=== PATIENT | male | born 1965 | race African-American/Black ===

== ENCOUNTER 2017-04-07 03:42 | Emergency (ER) | payer SELFPAY | END 2017-04-07 04:13 | disposition home or self-care (01) | LOC: ER 03:42 | DX: K70.31 Alcoholic cirrhosis of liver with ascites (principal); F10.20 Alcohol dependence, uncomplicated; Z86.19 Personal history of other infectious and parasitic diseases; Z87.891 Personal history of nicotine dependence | CPT/HCPCS: 99283 ==

== ENCOUNTER 2017-04-28 08:43 | Inpatient (IN) | payer SELFPAY ==
[2017-04-28] MEDS: THIAMINE 100 MG TABLET. PO ×2 (10:57)
[2017-04-28] MEDS: FOLIC/VIT B COMP W-C (RENAL) TABLET. PO ×2 (10:57)
[2017-04-28] MEDS: LACTOBACILLUS RHAMNOSUS GG 1 CAPSULE. PO ×4 (10:58→20:48)
[2017-04-28] MEDS: cefTRIAXone IV Push 1 GM VIAL. IVP ×2 (10:58)
[2017-04-28] MEDS: VITAMIN B12,B9,B6 COMPLEX 1 TABLET. PO ×2 (10:58)
[2017-04-28] MEDS: DOXYCYCLINE HYCLATE 100 MG TABLET PO ×4 (10:59→20:48)
[2017-04-28 11:43] LABS: INFLUENZA A PATIENT NEGATIVE (NEGATIVE); INFLUENZA B PATIENT POSITIVE (NEGATIVE); OBC FLU VALID
[2017-04-28] MEDS: IPRATRPIUM/ALBUTEROL 0.5/2.5MG 3 ML NEBU. NEB ×6 (11:51→19:53)
[2017-04-28 12:44] LABS: INR 1.8 (0.8-1.1); PROTHROMBIN TIME PATIENT 19.6 SEC (11.7-14.0)
[2017-04-28 12:48] LABS: HEMATOCRIT 38.7 % (39.0-53.0); HEMOGLOBIN 12.9 g/dL (13.0-17.5); MEAN CORPUSCULAR HEMOGLOBIN 33 pg (25-35); MEAN CORPUSCULAR HGB CONC 34 g/dL (31-37); MEAN CORPUSCULAR VOLUME 98 fL (79-100); PLATELET COUNT 69 x10^3/uL (140-400); RED BLOOD COUNT 3.95 x10^6/uL (4.30-5.70); RED CELL DISTRIBUTION WIDTH 15.3 % (11.5-14.5); WHITE BLOOD COUNT 7.5 x10^3/uL (4.0-11.0)
[2017-04-28] MEDS: OSELTAMIVIR 75 MG CAPSULE PO ×4 (13:05→20:48)
[2017-04-28] MEDS: oxyCODONE/APAP 5/325 1 TAB TABLET PO ×4 (14:50→19:45)
[2017-04-28] MEDS ORDERED: LIDOCAINE WITH 8.4% SOD BICARB 3 ML DISP.SYRIN. ×2 (15:04)
[2017-04-28] MEDS: LIDOCAINE WITH 8.4% SOD BICARB 3 ML DISP.SYRIN. INJ ×2 (16:05)
[2017-04-28] MEDS: ENOXAPARIN 40 MG/0.4 ML SYRINGE. SQ ×2 (16:55)
[2017-04-28] MEDS: MULTIVITAMIN with MINERAL TABLET. PO ×2 (17:23)
[2017-04-29 04:58] LABS: ADD MAN DIFF? NO
[2017-04-29 05:00] LABS: BASO # 0.1 x10^3/uL (0.0-0.2); BASO % 1 % (0-3); EOS # 0.2 x10^3/uL (0.0-0.7); EOS % 2 % (0-3); HEMATOCRIT 32.9 % (39.0-53.0); HEMOGLOBIN 11.3 g/dL (13.0-17.5); LYMPH # 1.1 x10^3/uL (1.0-4.8); LYMPH % 11 % (24-48); MEAN CORPUSCULAR HEMOGLOBIN 34 pg (25-35); MEAN CORPUSCULAR HGB CONC 34 g/dL (31-37); MEAN CORPUSCULAR VOLUME 99 fL (79-100); MONO # 1.6 x10^3/uL (0.0-1.1); MONO % 16 % (0-9); NEUT # 7.2 x10^3uL (1.8-7.7); NEUT % 71 % (31-73); PLATELET COUNT 55 x10^3/uL (140-400); RED BLOOD COUNT 3.32 x10^6/uL (4.30-5.70); RED CELL DISTRIBUTION WIDTH 15.2 % (11.5-14.5); WHITE BLOOD COUNT 10.1 x10^3/uL (4.0-11.0)
[2017-04-29 05:10] LABS: INR 2.1 (0.8-1.1); PROTHROMBIN TIME PATIENT 21.9 SEC (11.7-14.0)
[2017-04-29 05:21] LABS: ALBUMIN 1.5 g/dL (3.4-5.0); ALBUMIN/GLOBULIN RATIO 0.4 (1.0-1.7); ALK PHOS 116 U/L (46-116); ALT (SGPT) 24 U/L (16-63); ANION GAP 3 (6-14); AST (SGOT) 66 U/L (15-37); BLOOD UREA NITROGEN 8 mg/dL (8-26); BUN/CREATININE RATIO 8 (6-20); CALCIUM 7.7 mg/dL (8.5-10.1); CARBON DIOXIDE 30 mmol/L (21-32); CHLORIDE 108 mmol/L (98-107); GFR 94.6; GLUCOSE 114 mg/dL (70-99); POTASSIUM 4.5 mmol/L (3.5-5.1); SODIUM 141 mmol/L (136-145); TOTAL BILIRUBIN 1.2 mg/dL (0.2-1.0); TOTAL PROTEIN 5.2 g/dL (6.4-8.2)
[2017-04-29] MEDS: IPRATRPIUM/ALBUTEROL 0.5/2.5MG 3 ML NEBU. NEB ×8 (07:24→20:28)
[2017-04-29] MEDS: THIAMINE 100 MG TABLET. PO ×2 (09:49)
[2017-04-29] MEDS: LACTOBACILLUS RHAMNOSUS GG 1 CAPSULE. PO ×4 (09:49→21:18)
[2017-04-29] MEDS: VITAMIN B12,B9,B6 COMPLEX 1 TABLET. PO ×2 (09:49)
[2017-04-29] MEDS: MULTIVITAMIN with MINERAL TABLET. PO ×2 (09:50)
[2017-04-29] MEDS: cefTRIAXone IV Push 1 GM VIAL. IVP ×2 (09:50)
[2017-04-29] MEDS: FOLIC/VIT B COMP W-C (RENAL) TABLET. PO ×2 (09:50)
[2017-04-29] MEDS: OSELTAMIVIR 75 MG CAPSULE PO ×4 (09:50→21:18)
[2017-04-29] MEDS: DOXYCYCLINE HYCLATE 100 MG TABLET PO ×4 (09:50→21:18)
[2017-04-29] MEDS: SPIRONOLACTONE 25 MG TABLET PO ×4 (11:00→21:18)
[2017-04-29] MEDS: FUROSEMIDE 40 MG TABLET. PO ×2 (11:00)
[2017-04-29] MEDS: ENOXAPARIN 40 MG/0.4 ML SYRINGE. SQ ×2 (17:04)
[2017-04-29] MEDS: oxyCODONE/APAP 5/325 1 TAB TABLET PO ×2 (21:18)
[2017-04-30 05:33] LABS: PLATELET COUNT 62 x10^3/uL (140-400)
[2017-04-30] MEDS: IPRATRPIUM/ALBUTEROL 0.5/2.5MG 3 ML NEBU. NEB ×8 (07:53→19:27)
[2017-04-30] MEDS: LACTOBACILLUS RHAMNOSUS GG 1 CAPSULE. PO ×4 (08:25→19:43)
[2017-04-30] MEDS: DOXYCYCLINE HYCLATE 100 MG TABLET PO ×4 (08:25→19:43)
[2017-04-30] MEDS: FUROSEMIDE 40 MG TABLET. PO ×2 (08:25)
[2017-04-30] MEDS: THIAMINE 100 MG TABLET. PO ×2 (08:25)
[2017-04-30] MEDS: MULTIVITAMIN with MINERAL TABLET. PO ×2 (08:25)
[2017-04-30] MEDS: FOLIC/VIT B COMP W-C (RENAL) TABLET. PO ×2 (08:25)
[2017-04-30] MEDS: OSELTAMIVIR 75 MG CAPSULE PO ×4 (08:26→19:42)
[2017-04-30] MEDS: SPIRONOLACTONE 25 MG TABLET PO ×4 (08:26→19:43)
[2017-04-30] MEDS: VITAMIN B12,B9,B6 COMPLEX 1 TABLET. PO ×2 (08:32)
[2017-04-30 09:31] LABS: BARBITURATES NEG (NEG); BENZODIAZEPINES NEG (NEG); CANNABINOIDS POS (NEG); METHADONE NEG (NEG); OPIATES NEG (NEG); PHENCYCLIDINE NEG (NEG)
[2017-04-30 09:37] LABS: AMPHETAMINE/METHAMPHETAMINE NEG (NEG); ETHANOL, URINE NEG (NEG)
[2017-04-30 09:42] LABS: COCAINE POS (NEG)
[2017-04-30] MEDS: cefTRIAXone IV Push 1 GM VIAL. IVP ×2 (10:00)
[2017-04-30 10:43] LABS: ALBUMIN 1.5 g/dL (3.4-5.0); ALBUMIN/GLOBULIN RATIO 0.4 (1.0-1.7); ALK PHOS 109 U/L (46-116); ALT (SGPT) 25 U/L (16-63); ANION GAP 1 (6-14); AST (SGOT) 65 U/L (15-37); BLOOD UREA NITROGEN 9 mg/dL (8-26); BUN/CREATININE RATIO 10 (6-20); CALCIUM 7.6 mg/dL (8.5-10.1); CARBON DIOXIDE 31 mmol/L (21-32); CHLORIDE 106 mmol/L (98-107); CREATININE 0.9 mg/dL (0.7-1.3); GFR 106.8; GLUCOSE 121 mg/dL (70-99); POTASSIUM 4.4 mmol/L (3.5-5.1); SODIUM 138 mmol/L (136-145); TOTAL BILIRUBIN 1.1 mg/dL (0.2-1.0)
[2017-04-30] MEDS: CALCIUM CARBONATE 500 MG TAB.CHEW PO ×2 (16:55)
[2017-04-30] MEDS: ENOXAPARIN 40 MG/0.4 ML SYRINGE. SQ ×2 (16:55)
[2017-04-30] MEDS: FAMOTIDINE 20 MG TABLET. PO ×2 (19:43)
[2017-04-30] MEDS: oxyCODONE/APAP 5/325 1 TAB TABLET PO ×2 (19:43)
[2017-05-01] MEDS: IPRATRPIUM/ALBUTEROL 0.5/2.5MG 3 ML NEBU. NEB ×8 (07:30→19:30)
[2017-05-01] MEDS: VITAMIN B12,B9,B6 COMPLEX 1 TABLET. PO ×2 (11:32)
[2017-05-01] MEDS: DOXYCYCLINE HYCLATE 100 MG TABLET PO ×4 (11:32→19:28)
[2017-05-01] MEDS: OSELTAMIVIR 75 MG CAPSULE PO ×4 (11:32→19:35)
[2017-05-01] MEDS: LACTOBACILLUS RHAMNOSUS GG 1 CAPSULE. PO ×4 (11:32→19:28)
[2017-05-01] MEDS: THIAMINE 100 MG TABLET. PO ×2 (11:32)
[2017-05-01] MEDS: MULTIVITAMIN with MINERAL TABLET. PO ×2 (11:33)
[2017-05-01] MEDS: FOLIC/VIT B COMP W-C (RENAL) TABLET. PO ×2 (11:33)
[2017-05-01] MEDS: FAMOTIDINE 20 MG TABLET. PO ×4 (11:33→19:28)
[2017-05-01] MEDS: FUROSEMIDE 40 MG TABLET. PO ×2 (11:34)
[2017-05-01] MEDS: SPIRONOLACTONE 25 MG TABLET PO ×4 (11:34→19:29)
[2017-05-01] MEDS: ENOXAPARIN 40 MG/0.4 ML SYRINGE. SQ ×2 (18:05)
[2017-05-01] MEDS: oxyCODONE/APAP 5/325 1 TAB TABLET PO ×2 (19:29)
[2017-05-02] MEDS: IPRATRPIUM/ALBUTEROL 0.5/2.5MG 3 ML NEBU. NEB ×8 (08:39→19:43)
[2017-05-02] MEDS: DOXYCYCLINE HYCLATE 100 MG TABLET PO ×4 (09:12→20:03)
[2017-05-02] MEDS: MULTIVITAMIN with MINERAL TABLET. PO ×2 (09:12)
[2017-05-02] MEDS: FUROSEMIDE 40 MG TABLET. PO ×2 (09:12)
[2017-05-02] MEDS: VITAMIN B12,B9,B6 COMPLEX 1 TABLET. PO ×2 (09:12)
[2017-05-02] MEDS: SPIRONOLACTONE 25 MG TABLET PO ×4 (09:13→20:02)
[2017-05-02] MEDS: LACTOBACILLUS RHAMNOSUS GG 1 CAPSULE. PO ×4 (09:13→20:02)
[2017-05-02] MEDS: OSELTAMIVIR 75 MG CAPSULE PO ×4 (09:13→20:02)
[2017-05-02] MEDS: THIAMINE 100 MG TABLET. PO ×2 (09:13)
[2017-05-02] MEDS: FAMOTIDINE 20 MG TABLET. PO ×4 (09:13→20:03)
[2017-05-02] MEDS: FOLIC/VIT B COMP W-C (RENAL) TABLET. PO ×2 (09:13)
[2017-05-02] MEDS: oxyCODONE/APAP 5/325 1 TAB TABLET PO ×4 (09:14→20:02)
[2017-05-02] MEDS: ENOXAPARIN 40 MG/0.4 ML SYRINGE. SQ ×2 (17:24)
[2017-05-03] MEDS: IPRATRPIUM/ALBUTEROL 0.5/2.5MG 3 ML NEBU. NEB ×4 (08:02→11:42)
[2017-05-03] MEDS: LACTOBACILLUS RHAMNOSUS GG 1 CAPSULE. PO ×2 (08:52)
[2017-05-03] MEDS: MULTIVITAMIN with MINERAL TABLET. PO ×2 (08:52)
[2017-05-03] MEDS: DOXYCYCLINE HYCLATE 100 MG TABLET PO ×2 (08:52)
[2017-05-03] MEDS: FOLIC/VIT B COMP W-C (RENAL) TABLET. PO ×2 (08:52)
[2017-05-03] MEDS: SPIRONOLACTONE 25 MG TABLET PO ×2 (08:52)
[2017-05-03] MEDS: THIAMINE 100 MG TABLET. PO ×2 (08:52)
[2017-05-03] MEDS: VITAMIN B12,B9,B6 COMPLEX 1 TABLET. PO ×2 (08:52)
[2017-05-03] MEDS: OSELTAMIVIR 75 MG CAPSULE PO ×2 (08:53)
[2017-05-03] MEDS: FAMOTIDINE 20 MG TABLET. PO ×2 (08:53)
[2017-05-03] MEDS: FUROSEMIDE 40 MG TABLET. PO ×2 (08:53)
== END 2017-05-03 16:20 | disposition home or self-care (01) | DRG 872 ==
LOC: 5 NORTH 08:43
PROC: 0W993ZZ Drainage of Right Pleural Cavity, Percutaneous Approach (ICD-10-PCS; principal; 2017-04-29)
DX: A41.9 Sepsis, unspecified organism (principal); J90 Pleural effusion, not elsewhere classified; D68.4 Acquired coagulation factor deficiency; D69.6 Thrombocytopenia, unspecified; K76.6 Portal hypertension; R18.8 Other ascites; J98.11 Atelectasis; K74.60 Unspecified cirrhosis of liver; B19.20 Unspecified viral hepatitis C without hepatic coma; F14.10 Cocaine abuse, uncomplicated; I10 Essential (primary) hypertension; J10.1 Influenza due to other identified influenza virus with other respiratory manifestations; F17.210 Nicotine dependence, cigarettes, uncomplicated; K80.20 Calculus of gallbladder without cholecystitis without obstruction; Z59.0 Homelessness; Z91.19 Patient's noncompliance with other medical treatment and regimen
CPT/HCPCS: 32555; 36415; 71045; 71046; 76705; 80053; 80307; 85025; 85027; 85049; 85610; 87804; 87804-59; 93306; 94640; 94760; J0696; J1650; J2060; J7620

== ENCOUNTER 2017-05-10 10:00 | Inpatient (IN) | payer SELFPAY ==
[2017-05-10 11:44] LABS: INFLUENZA A PATIENT NEGATIVE (NEGATIVE); INFLUENZA B PATIENT NEGATIVE (NEGATIVE); OBC FLU VALID
[2017-05-10] MEDS ORDERED: FUROSEMIDE 40 MG TABLET. PO (12:00)
[2017-05-10 12:06] LABS: INR 1.5 (0.8-1.1); PROTHROMBIN TIME PATIENT 17.4 SEC (11.7-14.0)
[2017-05-10 12:08] LABS: ADD MAN DIFF? YES; BASO % 0 % (0-3); EOS % 0 % (0-3); HEMATOCRIT 39.1 % (39.0-53.0); HEMOGLOBIN 12.9 g/dL (13.0-17.5); LYMPH # 0.2 x10^3/uL (1.0-4.8); LYMPH % 4 % (24-48); MEAN CORPUSCULAR HEMOGLOBIN 32 pg (25-35); MEAN CORPUSCULAR HGB CONC 33 g/dL (31-37); MEAN CORPUSCULAR VOLUME 96 fL (79-100); MONO % 1 % (0-9); NEUT # 5.5 x10^3uL (1.8-7.7); NEUT % 95 % (31-73); PLATELET COUNT 84 x10^3/uL (140-400); RED BLOOD COUNT 4.09 x10^6/uL (4.30-5.70); RED CELL DISTRIBUTION WIDTH 14.5 % (11.5-14.5); WHITE BLOOD COUNT 5.8 x10^3/uL (4.0-11.0)
[2017-05-10] MEDS: METOPROLOL TART IMMED RELEASE 25 MG TABLET. PO ×2 (12:17→20:13)
[2017-05-10] MEDS: THIAMINE 100 MG TABLET. PO (12:17)
[2017-05-10] MEDS: FUROSEMIDE 40 MG TABLET. PO (12:17)
[2017-05-10] MEDS: SPIRONOLACTONE 25 MG TABLET PO ×2 (12:17→20:14)
[2017-05-10] MEDS: VITAMIN B12,B9,B6 COMPLEX 1 TABLET. PO (12:17)
[2017-05-10 12:20] LABS: ALBUMIN 1.8 g/dL (3.4-5.0); ALBUMIN/GLOBULIN RATIO 0.4 (1.0-1.7); ALK PHOS 130 U/L (46-116); ALT (SGPT) 37 U/L (16-63); ANION GAP 9 (6-14); AST (SGOT) 87 U/L (15-37); BLOOD UREA NITROGEN 11 mg/dL (8-26); BUN/CREATININE RATIO 12 (6-20); CARBON DIOXIDE 26 mmol/L (21-32); CHLORIDE 108 mmol/L (98-107); CREATININE 0.9 mg/dL (0.7-1.3); GFR 106.8; GLUCOSE 158 mg/dL (70-99); POTASSIUM 3.9 mmol/L (3.5-5.1); SODIUM 143 mmol/L (136-145); TOTAL BILIRUBIN 1.6 mg/dL (0.2-1.0); TOTAL PROTEIN 6.5 g/dL (6.4-8.2)
[2017-05-10] MEDS ORDERED: ENOXAPARIN 40 MG/0.4 ML SYRINGE. SQ (13:00)
[2017-05-10 13:02] LABS: % LYMPHS 1 % (24-48); % MONOS 1 % (0-10); % SEGS 98 % (35-66); ANISOCYTOSIS SLIGHT; PLT ESTIMATE DECREASED (ADEQUATE)
[2017-05-10 13:04] LABS: AMMONIA 45 mcmol/L (11-34)
[2017-05-10 13:38] LABS: AMPHETAMINE/METHAMPHETAMINE NEG (NEG); BARBITURATES NEG (NEG); BENZODIAZEPINES NEG (NEG); CANNABINOIDS POS (NEG); COCAINE POS (NEG); ETHANOL, URINE NEG (NEG); METHADONE NEG (NEG); OPIATES NEG (NEG); PHENCYCLIDINE NEG (NEG)
[2017-05-10] MEDS: NEOMYCIN/BACI/POLYMYXIN OPHTH OINTMENT 3.5GM TUBE. OS ×3 (13:57→20:16)
[2017-05-10] MEDS: LACTULOSE 20 GM/30 ML SOLUTION. PO (18:19)
[2017-05-10] MEDS: diphenhydrAMINE HCL 25 MG CAPSULE PO (20:16)
[2017-05-10] MEDS: ALBUTEROL SULFATE 2.5 MG/3 ML NEBU. NEB (20:27)
[2017-05-10] MEDS ORDERED: SPIRONOLACTONE 25 MG TABLET PO (21:00)
[2017-05-11] MEDS: NEOMYCIN/BACI/POLYMYXIN OPHTH OINTMENT 3.5GM TUBE. OS ×4 (06:01→20:32)
[2017-05-11 08:03] LABS: ADD MAN DIFF? NO
[2017-05-11 08:12] LABS: BASO # 0.1 x10^3/uL (0.0-0.2); BASO % 1 % (0-3); EOS % 0 % (0-3); HEMATOCRIT 38.1 % (39.0-53.0); HEMOGLOBIN 12.5 g/dL (13.0-17.5); LYMPH # 0.7 x10^3/uL (1.0-4.8); LYMPH % 4 % (24-48); MEAN CORPUSCULAR HEMOGLOBIN 31 pg (25-35); MEAN CORPUSCULAR HGB CONC 33 g/dL (31-37); MEAN CORPUSCULAR VOLUME 96 fL (79-100); MONO # 0.9 x10^3/uL (0.0-1.1); MONO % 5 % (0-9); NEUT # 16.8 x10^3uL (1.8-7.7); NEUT % 91 % (31-73); PLATELET COUNT 79 x10^3/uL (140-400); RED BLOOD COUNT 3.98 x10^6/uL (4.30-5.70); RED CELL DISTRIBUTION WIDTH 15.1 % (11.5-14.5); WHITE BLOOD COUNT 18.5 x10^3/uL (4.0-11.0)
[2017-05-11] MEDS: ALBUTEROL SULFATE 2.5 MG/3 ML NEBU. NEB ×4 (08:34→20:53)
[2017-05-11 08:42] LABS: ALBUMIN 1.5 g/dL (3.4-5.0); ALBUMIN/GLOBULIN RATIO 0.3 (1.0-1.7); ALK PHOS 126 U/L (46-116); ALT (SGPT) 29 U/L (16-63); ANION GAP 3 (6-14); AST (SGOT) 64 U/L (15-37); BLOOD UREA NITROGEN 13 mg/dL (8-26); BUN/CREATININE RATIO 14 (6-20); CALCIUM 8.4 mg/dL (8.5-10.1); CARBON DIOXIDE 30 mmol/L (21-32); CHLORIDE 108 mmol/L (98-107); CREATININE 0.9 mg/dL (0.7-1.3); GFR 106.8; GLUCOSE 124 mg/dL (70-99); POTASSIUM 4.2 mmol/L (3.5-5.1); SODIUM 141 mmol/L (136-145); TOTAL BILIRUBIN 0.9 mg/dL (0.2-1.0); TOTAL PROTEIN 5.8 g/dL (6.4-8.2)
[2017-05-11] MEDS: VITAMIN B12,B9,B6 COMPLEX 1 TABLET. PO (09:33)
[2017-05-11] MEDS: FUROSEMIDE 40 MG TABLET. PO (09:33)
[2017-05-11] MEDS: LACTULOSE 20 GM/30 ML SOLUTION. PO (09:33)
[2017-05-11] MEDS: METOPROLOL TART IMMED RELEASE 25 MG TABLET. PO ×2 (09:34→20:32)
[2017-05-11] MEDS: THIAMINE 100 MG TABLET. PO (09:34)
[2017-05-11] MEDS: SPIRONOLACTONE 25 MG TABLET PO ×2 (09:35→20:32)
[2017-05-11] MEDS ORDERED: LIDOCAINE WITH 8.4% SOD BICARB 3 ML DISP.SYRIN. (13:06)
[2017-05-11] MEDS ORDERED: DOCUSATE SODIUM 100 MG CAPSULE. PO (14:00)
[2017-05-11] MEDS ORDERED: ONDANSETRON PF 4 MG/2 ML VIAL. IV (14:00)
[2017-05-11] MEDS ORDERED: MORPHINE SULFATE 4 MG/ML DISP.SYRIN. IV (14:00)
[2017-05-11] MEDS ORDERED: traMADol 50 MG TABLET PO (14:00)
[2017-05-11] MEDS ORDERED: ACETAMINOPHEN 325 MG TABLET. PO (14:00)
[2017-05-11] MEDS ORDERED: hydrALAZINE 20 MG/ML VIAL. IVP (14:00)
[2017-05-11] MEDS: LIDOCAINE WITH 8.4% SOD BICARB 3 ML DISP.SYRIN. IJ (16:30)
[2017-05-11] MEDS: diphenhydrAMINE HCL 25 MG CAPSULE PO (20:32)
[2017-05-12 05:12] LABS: BASO % 0 % (0-3); EOS # 0.1 x10^3/uL (0.0-0.7); EOS % 1 % (0-3); HEMATOCRIT 38.5 % (39.0-53.0); HEMOGLOBIN 12.7 g/dL (13.0-17.5); LYMPH # 1.4 x10^3/uL (1.0-4.8); LYMPH % 9 % (24-48); MEAN CORPUSCULAR HEMOGLOBIN 31 pg (25-35); MEAN CORPUSCULAR HGB CONC 33 g/dL (31-37); MEAN CORPUSCULAR VOLUME 96 fL (79-100); MONO # 1.3 x10^3/uL (0.0-1.1); MONO % 8 % (0-9); NEUT % 83 % (31-73); PLATELET COUNT 83 x10^3/uL (140-400); RED BLOOD COUNT 4.03 x10^6/uL (4.30-5.70); RED CELL DISTRIBUTION WIDTH 14.8 % (11.5-14.5); WHITE BLOOD COUNT 16.8 x10^3/uL (4.0-11.0)
[2017-05-12 05:21] LABS: ANION GAP 9 (6-14); BLOOD UREA NITROGEN 16 mg/dL (8-26); CALCIUM 8.4 mg/dL (8.5-10.1); CARBON DIOXIDE 27 mmol/L (21-32); CHLORIDE 109 mmol/L (98-107); CREATININE 1.2 mg/dL (0.7-1.3); GFR 76.6; GLUCOSE 73 mg/dL (70-99); POTASSIUM 3.5 mmol/L (3.5-5.1); SODIUM 145 mmol/L (136-145)
[2017-05-12 05:24] LABS: ADD MAN DIFF? YES
[2017-05-12] MEDS: ALBUTEROL SULFATE 2.5 MG/3 ML NEBU. NEB ×4 (08:06→20:22)
[2017-05-12] MEDS: NEOMYCIN/BACI/POLYMYXIN OPHTH OINTMENT 3.5GM TUBE. OS ×4 (08:11→20:20)
[2017-05-12] MEDS: SPIRONOLACTONE 25 MG TABLET PO ×2 (08:12→20:18)
[2017-05-12] MEDS: LACTULOSE 20 GM/30 ML SOLUTION. PO (08:12)
[2017-05-12] MEDS: FUROSEMIDE 40 MG TABLET. PO (08:16)
[2017-05-12] MEDS: THIAMINE 100 MG TABLET. PO (08:16)
[2017-05-12] MEDS: VITAMIN B12,B9,B6 COMPLEX 1 TABLET. PO (08:16)
[2017-05-12] MEDS: METOPROLOL TART IMMED RELEASE 25 MG TABLET. PO ×2 (08:17→20:20)
[2017-05-12 09:13] LABS: % BANDS 2 % (0-9); % EOS 1 % (0-5); % LYMPHS 1 % (24-48); % MONOS 2 % (0-10); % SEGS 94 % (35-66); PLT ESTIMATE DECREASED (ADEQUATE)
[2017-05-12 09:14] LABS: ANISOCYTOSIS PRESENT
[2017-05-12 13:44] LABS: BILIRUBIN,URINE NEGATIVE (NEG); COLOR,URINE YELLOW; GLUCOSE,URINE NEGATIVE (NEG); NITRITE,URINE NEGATIVE (NEG); PH,URINE 6.5; PROTEIN,URINE NEGATIVE (NEG-TRACE); UROBILINOGEN,URINE 0.2 mg/dL (0.2 mg/dL)
[2017-05-12 13:51] LABS: CLARITY,URINE CLEAR
[2017-05-12 13:58] LABS: BACTERIA,URINE 0 /HPF (0-FEW); HYALINE CASTS, URINE FEW /HPF; SQUAMOUS EPITHELIAL CELL,UR OCC /LPF; WBC,URINE 0 /HPF (0-4)
[2017-05-12] MEDS ORDERED: FUROSEMIDE 40 MG/4 ML VIAL. IVP (17:15)
[2017-05-12] MEDS ORDERED: CALCIUM CARBONATE 500 MG TAB.CHEW PO (18:30)
[2017-05-13 05:04] LABS: ADD MAN DIFF? NO
[2017-05-13 05:18] LABS: BASO # 0.1 x10^3/uL (0.0-0.2); BASO % 1 % (0-3); EOS # 0.3 x10^3/uL (0.0-0.7); EOS % 4 % (0-3); HEMATOCRIT 34.1 % (39.0-53.0); HEMOGLOBIN 11.5 g/dL (13.0-17.5); LYMPH # 1.4 x10^3/uL (1.0-4.8); LYMPH % 15 % (24-48); MEAN CORPUSCULAR HEMOGLOBIN 32 pg (25-35); MEAN CORPUSCULAR HGB CONC 34 g/dL (31-37); MEAN CORPUSCULAR VOLUME 96 fL (79-100); MONO # 1.3 x10^3/uL (0.0-1.1); MONO % 14 % (0-9); NEUT # 6.1 x10^3uL (1.8-7.7); NEUT % 66 % (31-73); PLATELET COUNT 63 x10^3/uL (140-400); RED BLOOD COUNT 3.56 x10^6/uL (4.30-5.70); RED CELL DISTRIBUTION WIDTH 14.9 % (11.5-14.5); WHITE BLOOD COUNT 9.2 x10^3/uL (4.0-11.0)
[2017-05-13 05:29] LABS: ANION GAP 4 (6-14); BLOOD UREA NITROGEN 17 mg/dL (8-26); CARBON DIOXIDE 28 mmol/L (21-32); CHLORIDE 111 mmol/L (98-107); GFR 94.6; GLUCOSE 99 mg/dL (70-99); POTASSIUM 4.2 mmol/L (3.5-5.1); SODIUM 143 mmol/L (136-145)
[2017-05-13] MEDS: NEOMYCIN/BACI/POLYMYXIN OPHTH OINTMENT 3.5GM TUBE. OS ×2 (05:58→08:26)
[2017-05-13] MEDS: ALBUTEROL SULFATE 2.5 MG/3 ML NEBU. NEB ×2 (07:44→11:54)
[2017-05-13] MEDS: LACTULOSE 20 GM/30 ML SOLUTION. PO (08:26)
[2017-05-13] MEDS: METOPROLOL TART IMMED RELEASE 25 MG TABLET. PO (08:27)
[2017-05-13] MEDS: FUROSEMIDE 40 MG TABLET. PO (08:28)
[2017-05-13] MEDS: THIAMINE 100 MG TABLET. PO (08:28)
[2017-05-13] MEDS: SPIRONOLACTONE 25 MG TABLET PO (08:28)
[2017-05-13] MEDS: VITAMIN B12,B9,B6 COMPLEX 1 TABLET. PO (08:28)
[2017-05-13 11:43] LABS: POC GLUCOSE 121 mg/dL (70-99)
== END 2017-05-13 13:40 | disposition home or self-care (01) | DRG 186 ==
LOC: 2 SOUTH 10:00
PROC: 5A09357 Assistance with Respiratory Ventilation, Less than 24 Consecutive Hours, Continuous Positive Airway Pressure (ICD-10-PCS; 2017-05-10)
PROC: 0W993ZZ Drainage of Right Pleural Cavity, Percutaneous Approach (ICD-10-PCS; principal; 2017-05-11)
PROC: 5A09357 Assistance with Respiratory Ventilation, Less than 24 Consecutive Hours, Continuous Positive Airway Pressure (ICD-10-PCS; 2017-05-11)
PROC: 5A09357 Assistance with Respiratory Ventilation, Less than 24 Consecutive Hours, Continuous Positive Airway Pressure (ICD-10-PCS; 2017-05-12)
PROC: 5A09357 Assistance with Respiratory Ventilation, Less than 24 Consecutive Hours, Continuous Positive Airway Pressure (ICD-10-PCS; 2017-05-13)
DX: J90 Pleural effusion, not elsewhere classified (principal); J96.21 Acute and chronic respiratory failure with hypoxia; D69.6 Thrombocytopenia, unspecified; E87.70 Fluid overload, unspecified; R18.8 Other ascites; J10.1 Influenza due to other identified influenza virus with other respiratory manifestations; D72.829 Elevated white blood cell count, unspecified; F14.10 Cocaine abuse, uncomplicated; F17.210 Nicotine dependence, cigarettes, uncomplicated; H10.32 Unspecified acute conjunctivitis, left eye; I10 Essential (primary) hypertension; B19.20 Unspecified viral hepatitis C without hepatic coma; K74.60 Unspecified cirrhosis of liver; Z59.0 Homelessness; Z91.19 Patient's noncompliance with other medical treatment and regimen
CPT/HCPCS: 32555; 36415; 71045; 80048; 80053; 80307; 81001; 82140; 82962; 85007; 85025; 85610; 87804; 87804-59; 94640; 94660; 94760; J7613; Q0163